=== PATIENT | female | born 1960 | race African-American/Black ===

== ENCOUNTER 2018-09-13 08:06 | Emergency (ER) | payer OTHER ==
[~2018-09-13] VITALS: Ht 167.6 cm; Wt 93.4 kg
[2018-09-13 08:17] VITALS: Ht 167.6 cm; Wt 93.4 kg
[2018-09-13 09:42] VITALS: BP 141/82
== END 2018-09-13 09:42 | disposition home or self-care (01) ==
LOC: ED 08:06
DX: R21 Rash and other nonspecific skin eruption (principal); T78.49XA Other allergy, initial encounter; X58.XXXA Exposure to other specified factors, initial encounter; I10 Essential (primary) hypertension; F32.9 Major depressive disorder, single episode, unspecified
CPT/HCPCS: J7512; Q0163

== ENCOUNTER 2018-09-23 05:15 | Inpatient (IN) | payer OTHER ==
[~2018-09-23] VITALS: Ht 170.2 cm; Wt 97.7 kg
[2018-09-23 05:19] VITALS: Ht 170.2 cm; Wt 97.7 kg
[2018-09-23 06:28] LABS: CALCIUM 8.2 mg/dL (8.5-10.1); CARBON DIOXIDE 25.9 mmol/L (21-32); CREATININE SERUM 1.3 mg/dL (0.6-1.0); POTASSIUM SERUM 3.5 mmol/L (3.5-5.1)
[2018-09-23 06:32] LABS: BILIRUBIN TOTAL 0.5 mg/dL (0.20-1.00)
[2018-09-23 06:34] LABS: RED CELL DISTRIBUTION WIDTH 15.1 % (11.5-14.5)
[2018-09-23 06:35] LABS: PLATELET COUNT 506 x10^3mcL (130-400)
[2018-09-23 06:42] LABS: BAND NEUTROPHIL 7 % (0-10); MONOCYTE 2 % (0-7); SEGMENTED NEUTROPHILS 66 % (37-75)
[2018-09-23 06:45] LABS: rbc morphology (normal/abnorm) NORMAL (NORMAL)
[2018-09-23 07:39] LABS: ALBUMIN 3.2 g/dL (3.4-5.0)
[2018-09-23] MEDS ORDERED: BLOOD PRESSURE ×2 (08:42→08:43)
[2018-09-23] MEDS ORDERED: PRE15 (08:43)
[2018-09-23] MEDS ORDERED: PERCOCET1 TA5 (08:44)
[2018-09-23] MEDS ORDERED: DEPRESSION MED (08:44)
[2018-09-23] MEDS ORDERED: BENAZEPRIL HYDR1 POW (08:45)
[2018-09-23] MEDS ORDERED: ADV200 (08:45)
[2018-09-23 12:58] VITALS: BP 140/80
[2018-09-23] MEDS ORDERED: DOXEPIN HCL100 MG PO (12:58)
[2018-09-23] MEDS ORDERED: DYA PO (13:00)
[2018-09-23] MEDS ORDERED: CYMBALTA60 M1 PO (13:02)
[2018-09-23] MEDS ORDERED: PRE30 PO (13:02)
[2018-09-23] MEDS ORDERED: CYCLOBENZAPRINE10 MG PO (13:04)
[2018-09-23] MEDS ORDERED: IBUPROFEN400 MG PO (13:04)
[2018-09-23] MEDS ORDERED: TRIAMTERENE/HCT1 TA2 PO (13:05)
[2018-09-23] MEDS ORDERED: BANOPHEN25 MG PO (13:07)
[2018-09-23 13:19] VITALS: BP 143/92
[2018-09-23 16:45] VITALS: BP 115/76
[2018-09-23 21:36] VITALS: BP 126/75
[2018-09-24 05:32] VITALS: BP 140/88
[2018-09-24 06:46] LABS: CALCIUM 8.7 mg/dL (8.5-10.1); CARBON DIOXIDE 31.3 mmol/L (21-32); CREATININE SERUM 1.1 mg/dL (0.6-1.0); POTASSIUM SERUM 4.5 mmol/L (3.5-5.1)
[2018-09-24 07:12] LABS: BASOPHIL % 0.1 % (0-2); PLATELET COUNT 398 x10^3mcL (130-400)
[2018-09-24 07:47] LABS: RED CELL DISTRIBUTION WIDTH 14.8 % (11.5-14.5)
[2018-09-24 08:45] VITALS: BP 149/89
[2018-09-24 13:21] VITALS: BP 135/83
[2018-09-24 17:37] VITALS: BP 131/94
[2018-09-24] MEDS ORDERED: MEDROL4 MG PO (18:14)
[2018-09-24 19:15] VITALS: BP 131/94
== END 2018-09-24 19:33 | disposition home or self-care (01) | DRG 916 ==
LOC: ED 05:15 → DU 08:37 → EDBEDREQ 08:38 → DU 10:13
PROVIDERS: Emergency Medicine; ADMIT Internal Medicine Pulmonary Disease
DX: T78.40XA Allergy, unspecified, initial encounter (principal); R51 Headache; L50.0 Allergic urticaria; R22.0 Localized swelling, mass and lump, head; R13.10 Dysphagia, unspecified; I48.91 Unspecified atrial fibrillation; I10 Essential (primary) hypertension; F32.9 Major depressive disorder, single episode, unspecified; E66.01 Morbid (severe) obesity due to excess calories; X58.XXXA Exposure to other specified factors, initial encounter; Y92.009 Unspecified place in unspecified non-institutional (private) residence as the place of occurrence of the external cause
CPT/HCPCS: J0171; J1200; J2920; J2930; J3490; J7042; J7512

== ENCOUNTER 2018-09-28 08:50 | Observation (INO) | payer OTHER ==
[~2018-09-28] VITALS: Ht 170.2 cm; Wt 93.6 kg
[~2018-09-28 08:50] MED LIST: ADV200 PO; BANOPHEN25 MG PO; BENAZEPRIL HYDR1 POW; BLOOD PRESSURE; CYCLOBENZAPRINE10 MG PO; CYMBALTA60 M1 PO; DEPRESSION MED; DOXEPIN HCL100 MG PO; DYA PO; IBUPROFEN400 MG PO; MEDROL4 MG PO; PERCOCET1 TA5 PO; PRE15; PRE30 PO; TRIAMTERENE/HCT1 TA2 PO
[2018-09-28 08:52] VITALS: Ht 170.2 cm; Wt 93.6 kg
[2018-09-28 10:10] LABS: CALCIUM 9.2 mg/dL (8.5-10.1); CARBON DIOXIDE 27.1 mmol/L (21-32); CREATININE SERUM 1.5 mg/dL (0.6-1.0); POTASSIUM SERUM 3.2 mmol/L (3.5-5.1)
[2018-09-28 10:14] LABS: PLATELET COUNT 335 x10^3mcL (130-400); RED CELL DISTRIBUTION WIDTH 14.3 % (11.5-14.5)
[2018-09-28 10:15] LABS: ALBUMIN 3.5 g/dL (3.4-5.0); BILIRUBIN TOTAL 0.6 mg/dL (0.20-1.00); TOTAL PROTEIN, SERUM 7.8 g/dL (6.4-8.2)
[2018-09-28 11:08] LABS: BAND NEUTROPHIL 1 % (0-10); BASOPHIL 0 % (0-2); MONOCYTE 6 % (0-7); PLATELET MORPHOLOGY GIANT PLATELET SEEN; SEGMENTED NEUTROPHILS 44 % (37-75); rbc morphology (normal/abnorm) ABNORMAL (NORMAL); tear drop cell (dacryocyte) 1+
[2018-09-28 12:44] LABS: microscopic required? NO
[2018-09-28 12:57] LABS: urine erythrocyte NEGATIVE (NEGATIVE)
[2018-09-28 14:26] VITALS: BP 111/79
[2018-09-28 16:51] VITALS: BP 114/75
[2018-09-28 20:44] VITALS: BP 108/75
[2018-09-29 05:45] VITALS: BP 110/66
[2018-09-29 07:35] VITALS: BP 115/77
[2018-09-29 07:46] LABS: CALCIUM 8.6 mg/dL (8.5-10.1); CARBON DIOXIDE 22.5 mmol/L (21-32); CREATININE SERUM 1.3 mg/dL (0.6-1.0); POTASSIUM SERUM 3.6 mmol/L (3.5-5.1)
[2018-09-29 08:13] LABS: PLATELET COUNT 398 x10^3mcL (130-400)
[2018-09-29 09:15] LABS: ATYPICAL LYMPH 1 %; BAND NEUTROPHIL 0 % (0-10); BASOPHIL 0 % (0-2); MONOCYTE 8 % (0-7); SEGMENTED NEUTROPHILS 80 % (37-75)
[2018-09-29 09:16] LABS: PLATELET MORPHOLOGY PLATELETS INCREASED; rbc morphology (normal/abnorm) ABNORMAL (NORMAL)
[2018-09-29 11:50] VITALS: BP 126/82
[2018-09-29 16:09] VITALS: BP 124/80
== END 2018-09-29 18:42 | disposition left against medical advice (07) | DRG 392 ==
LOC: ED 08:50 → DU 12:59
PROVIDERS: Emergency Medicine; ADMIT Internal Medicine
DX: K21.9 Gastro-esophageal reflux disease without esophagitis (principal); K20.9 Esophagitis, unspecified; D72.829 Elevated white blood cell count, unspecified; R00.0 Tachycardia, unspecified; R59.1 Generalized enlarged lymph nodes; K80.20 Calculus of gallbladder without cholecystitis without obstruction; K76.0 Fatty (change of) liver, not elsewhere classified; I27.20 Pulmonary hypertension, unspecified; I12.9 Hypertensive chronic kidney disease with stage 1 through stage 4 chronic kidney disease, or unspecified chronic kidney disease; N18.9 Chronic kidney disease, unspecified; M54.5 Low back pain; G89.4 Chronic pain syndrome; F41.9 Anxiety disorder, unspecified; K42.9 Umbilical hernia without obstruction or gangrene
CPT/HCPCS: C9113; G0378; J0696; J1200; J1644; J2270; J2930; J3490; J7030; Q0092; Q0163; Q9967

== ENCOUNTER 2020-04-12 18:51 | Emergency (ER) | payer OTHER ==
[~2020-04-12] VITALS: Ht 170.2 cm; Wt 74.1 kg
[2020-04-12 19:12] VITALS: Ht 170.2 cm; Wt 74.1 kg
[2020-04-12 20:03] VITALS: BP 139/78
== END 2020-04-12 20:03 | disposition home or self-care (01) ==
LOC: ED 18:51
DX: M54.42 Lumbago with sciatica, left side (principal); M25.512 Pain in left shoulder; M79.642 Pain in left hand; M79.641 Pain in right hand; M19.90 Unspecified osteoarthritis, unspecified site; I10 Essential (primary) hypertension